=== PATIENT | male | born 1945 | race Caucasian/White ===

== ENCOUNTER 2021-01-04 15:24 | Inpatient (IN) | payer OTHER ==
[~2021-01-04] VITALS: Ht 175.3 cm; Wt 92.1 kg
[~2021-01-04 15:24] MED LIST: CIPROFLOXACIN500 M1 PO; NORCO 5-325 TA1 EACH PO; NOT SURE OF MEDS
[2021-01-04 15:31] VITALS: BP 116/80
[2021-01-04 15:59] LABS: ABSOLUTE NEUTROPHILS 6.5 thou/uL (1.4-8.2); EOSINOPHILS 1.6 % (0.0-3.0); HEMATOCRIT 37.5 % (42.0-52.0); HEMOGLOBIN 12.5 gm/dL (14.0-18.0); LYMPHOCYTES 11.1 % (24.0-44.0); MCH 32.4 pg (26.0-34.0); MCHC 33.4 g/dL (28.0-37.0); MCV 96.9 fL (80.0-100.0); MONOCYTES 8.8 % (1.0-8.0); PLATELET COUNT 184 thou/uL (150-400); POLYS 77.5 % (36.0-66.0); RBC 3.87 mil/uL (4.50-6.00); RDW 13.5 % (10.5-14.5); WBC 8.4 thou/uL (4.0-11.0)
[2021-01-04 16:19] LABS: CALCIUM 8.7 mg/dL (8.5-10.1); CREATININE 1.3 mg/dL (0.7-1.3); POTASSIUM 3.7 mmol/L (3.5-5.1)
[2021-01-04 16:32] LABS: ALBUMIN 3.4 g/dL (3.4-5.0); TOTAL BILIRUBIN 0.3 mg/dL (0.2-1.0); TOTAL PROTEIN 6.9 g/dL (6.4-8.2)
[2021-01-04 18:07] VITALS: BP 132/88
[2021-01-04 18:32] VITALS: BP 127/80
--- NOTE | 2021-01-04 19:24 | NUR ---
PT ORIENTED TO ROOM AND UNIT, BED LOW AND LOCKED, SIDE RAILS UPX3, CALL LIGHT IN REACH. TELE SHOWS AFIB RVR WITH CARDIZEM GTT IN PLACE. OBTAIN ORDER FROM YULIA PIZANO FOR CARDIAC CONSULT AND SPOKE WITH DR HERNANDEZ. VILMA REPORT GIVEN TO MARIEL GRIJALVA.
[2021-01-04 19:52] VITALS: BP 140/83
[2021-01-04 21:20] LABS: PHOSPHORUS 4.2 mg/dL (2.6-4.7)
[2021-01-04 22:03] LABS: FOLIC ACID 14.6 ng/mL (8.6-58.9)
[2021-01-04 23:47] VITALS: BP 122/89
[2021-01-05 04:05] VITALS: BP 134/74
[2021-01-05 04:07] LABS: ALBUMIN 3.4 g/dL (3.4-5.0); CALCIUM 8.6 mg/dL (8.5-10.1); CREATININE 1.3 mg/dL (0.7-1.3); MAGNESIUM 1.9 mg/dL (1.8-2.4); PHOSPHORUS 3.6 mg/dL (2.6-4.7); POTASSIUM 4.2 mmol/L (3.5-5.1); TOTAL BILIRUBIN 0.4 mg/dL (0.2-1.0); TOTAL PROTEIN 6.7 g/dL (6.4-8.2)
[2021-01-05 04:08] LABS: INR 1.1; PROTIME 11.9 Seconds (10.5-12.1)
[2021-01-05 06:28] LABS: URINE BILIRUBIN NEGATIVE (Negative); URINE BLOOD NEGATIVE (Negative); URINE CLARITY CLEAR; URINE COLOR YELLOW; URINE GLUCOSE-RANDOM* NEGATIVE (Negative); URINE KETONES NEGATIVE (Negative); URINE LEUKOCYTES-REFLEX NEGATIVE (Negative); URINE NITRITE-REFLEX NEGATIVE (Negative); URINE PROTEIN (DIPSTICK) NEGATIVE (Negative); URINE SPECIFIC GRAVITY <= 1.005 (1.005-1.035); URINE UROBILINOGEN 0.2 E.U./dl (0.2-1.0)
--- NOTE | 2021-01-05 06:28 | NUR ---
Pt admitted to 207 change of shift. Alert and oriented. Pt was on cardizem drip @ 20ml/hr. Drip titrated down 10ml/hr. HR in the 80's. Afib. Pt wheezy and SOB with exertion. Pt on stb assist to bathroom. Voids via urinal. Signed consent form for release of information from [facility]. Per charger operator helper, nuclear unit operator to fax today. Call light within reach. Nursing to continue to monitor.
[2021-01-05 07:18] LABS: ABSOLUTE NEUTROPHILS 6.4 thou/uL (1.4-8.2); BASOPHILS 0.4 % (0.0-2.0); EOSINOPHILS 0.3 % (0.0-3.0); HEMATOCRIT 39.7 % (42.0-52.0); HEMOGLOBIN 13.2 gm/dL (14.0-18.0); LYMPHOCYTES 5.8 % (24.0-44.0); MCH 32.2 pg (26.0-34.0); MCHC 33.2 g/dL (28.0-37.0); MCV 96.8 fL (80.0-100.0); PLATELET COUNT 186 thou/uL (150-400); POLYS 91.5 % (36.0-66.0); RBC 4.09 mil/uL (4.50-6.00); RDW 13.5 % (10.5-14.5)
--- NOTE | 2021-01-05 07:41 | NUR ---
Pt baldder scan this am showed 888ml. Pt voided 100ml. Straight cath had output of 700ml. Pt had lidocaine patch cut in 2. Half to right lower back and other half to right knee. Pt voiced patch helped alot.
[2021-01-05 07:50] VITALS: BP 135/61
[2021-01-05 11:50] VITALS: BP 134/78
[2021-01-05 15:45] VITALS: BP 143/77
--- NOTE | 2021-01-05 17:21 | NUR ---
ASSESSMENT CHARTED - MEDS PER CHAI - COURTNEY DIET AND FLUIDS, NO CO'S OF PAIN OR NAUSEA - LIDOCAINE PATCH PLACED TO R KNEE REQUESTED. PT AMBULATED WITH PHYS THERAPY - THEY STATED HE WAS NOT STEADY ON FEET. PT WITH SOB AND WHEEZING WITH ACTIVITY. SEEN BY CATDIOLOGY TODAY - ECHO ORDERED. CARDIZEM CONTINUES PT HR IN THE 80-90 EXCEPT WITH EXERTION THEN IT IS IN THE 120-130'S. RETURNS TO 80'S WITH REST. BLADDER SCANNED THIS AFTERNOON - 29CC NOTED IN BLADDER. NO CO'S AT THE PRESENT TIME.
[2021-01-05 23:30] VITALS: BP 141/79; BP 152/71
--- NOTE | 2021-01-06 04:34 | NUR ---
ASSUMED CARE OF PT AT 1900, PT WAS A/O X 4 AND PLEASENT. AT 0 ENTERED PT'S ROOM TO CORRECT IV, PT WAS LAYING DOWN IN BED REFUSING TO TAKE HIS MEDICATION, AND REFUSING TO ALLOW THIS NURSE TO ASSESS HIS IV IN HIS ARM. AFTER SEVERAL ATTEMPTS CHARGE NURSE NOTIFIED AND ASSISTED. PT WOULD NOT ANSWER QUESTIONS, ONLY STATING I WANT TO SLEEP. PT BECAME DISORIENTED TWICE THROUGHOUT THE NOC, AFTER AWAKING FROM A DEEP SLEEP. PT URINATED ON HIMSELF AND HAD TO BE REORIENTENT TO WHERE HE WAS. WILL CONTINUE TO WORK TOWARDS PT'S POC.
[2021-01-06 05:10] VITALS: BP 137/76
--- NOTE | 2021-01-06 07:38 | EKG ---
[address] [address] ELECTROCARDIOGRAM REPORT Name: DANIEL LOPEZ Room #: 207-P ADM IN M.R.#: [id number] Admission: 01/04/21 Attend Phys: Nighat Lehman MD Discharge: Date of : 45 Report #: [id number] [facility] ED Test Date: 2021-01-04 Test Time: 16:15:32 Pat Name: DANIEL LOPEZ Department: Room: 207 Gender: M Certified Coding Specialist: nmd : 1945 Requested By: Leandro Boggs Order Number: [id number] MD: Madi Thomas Measurements Intervals [place] Rate: 138 P: MS: QRS: 38 QRSD: 106 T: -26 QT: 318 QTc: 482 Interpretive Statements Atrial fibrillation Low voltage, extremity leads Anteroseptal infarct, old Compared to ECG 08/03/2007 06:39:03 Low QRS voltage now present Myocardial infarct finding now present Sinus bradycardia no longer present T-wave abnormality no longer present Possible ischemia no longer present Electronically Signed On 01-06-2021 7:37:47 CDT by Madi Thomas [email or web address] <ELECTRONICALLY SIGNED> By: Madi Thomas MD, FAC 01/06/21 0737 1615 1615 Madi Thomas MD, [facility] /EPI
--- NOTE | 2021-01-06 07:39 | EKG ---
[address] [address] ELECTROCARDIOGRAM REPORT Name: DANIEL LOPEZ Room #: 207-P ADM IN M.R.#: [id number] Admission: 01/04/21 Attend Phys: Nighat Lehman MD Discharge: Date of : 45 Report #: [id number] [facility] Test Date: 2021-01-05 Test Time: 00:24:16 Pat Name: DANIEL LOPEZ Department: Room: 207 Gender: M Cottrell Operator: KHALIDA : 1945 Requested By: Nighat Lehman Order Number: [id number] MD: Madi Thomas Measurements Intervals [place] Rate: 85 P: SC: QRS: 47 QRSD: 109 T: 45 QT: 404 QTc: 481 Interpretive Statements Atrial fibrillation Low voltage, extremity leads Probable anteroseptal infarct, old Compared to ECG 01/04/2021 16:15:32 No significant changes Electronically Signed On 01-06-2021 7:38:52 CDT by Madi Thomas [email or web address] <ELECTRONICALLY SIGNED> By: Madi Thomas MD, [facility] 01/06/21 0738 0024 0024 Madi Thomas MD, FACC /EPI
[2021-01-06 08:00] VITALS: BP 124/72
--- NOTE | 2021-01-06 10:57 | 2DMMODE ---
[facility] [place] [address] 2 D/M-MODE ECHOCARDIOGRAM Name: DANIEL LOPEZ Room #: 207-P ADM IN .R.#: [id number] Admission: 01/04/21 Attend Phys: Nighat Lehman MD Discharge: Date of : 45 Report #: [id number] THIS REPORT FOR: cc: FAM - No family physician/PCP FAM - No family physician/PCP Vance Covarrubias MD ~ APPROVED REPORT Study performed: 01/06/2021 08:19:46 EXAM: Comprehensive 2D, Doppler, and color-flow Echocardiogram Patient Location: In-Patient Room #: 207 Status: routine BSA: 0.82 HR: 76 bpm BP: 137/76 mmHg Rhythm: Atrial Fibrillation Other Information Study Quality: Fair Indications COPD Atrial Fibrillation Dyspnea 2D Dimensions IVSd: 14.16 (7-11mm) LVOT Diam: 23.04 (18-24mm) LVDd: 40.79 mm PWd: 12.64 (7-11mm) Ascending Ao: 47.43 (22-36mm) LVDs: 31.93 (25-40mm) Left Atrium: 45.70 (27-40mm) Aortic Root: 37.27 mm LV Single Plane 4CH: 59.81 % LV Single Plane 2CH: 64.39 % Volumes Left Atrial Volume (Systole) Single Plane 4CH: 57.28 mL Single Plane 2CH: 46.84 mL Aortic Valve AoV Peak Moustapha.: 0.98 m/s AO Peak Gr.: 3.84 mmHg LVOT Max P.25 mmHg [facility] [address] [place] [address] 2 D/M-MODE ECHOCARDIOGRAM Name: JESSICADANIEL Gerardo Room #: 207-P [facility]#: [id number] Admission: 01/04/21 Attend Phys: Nighat Lehman, Discharge: Date of : 45 Report #: [id number] LVOT Max V: 0.90 m/s EDITH Vmax: 3.83 cm2 Pulmonary Valve PV Peak Moustapha.: 0.90 m/s PV Peak Gr.: 3.27 mmHg Tricuspid Valve TR Peak Moustapha.: 2.23 m/s RAP Estimate: 7.00 mmHg TR Peak Gr.: 19.97 mmHg RVSP: 27.00 mmHg Left Ventricle The left ventricle is normal size. There is normal LV segmental wall motion. There is normal left ventricular wall thickness. Left ventricular systolic function is normal. The left ventricular ejection fraction is within the normal range. LVEF is 60%. This study is not technically sufficient to allow evaluation of the LV diastolic function due to atrial fibrillation. Right Ventricle The right ventricle is normal size. The right ventricular systolic function is normal. Atria The left atrium size is normal. The right atrium size is normal. Aortic Valve Aortic valve is trileaflet. Mild aortic regurgitation. There is no aortic valvular stenosis. Mitral Valve The mitral valve is normal in structure. Mild mitral regurgitation. No evidence of mitral valve stenosis. Tricuspid Valve The tricuspid valve is normal in structure. Mild tricuspid regurgitation. Pulmonic Valve The pulmonary valve is normal in structure. There is no pulmonic valvular regurgitation. Great Vessels The aortic root is normal in size. Ascending aorta is dilated. 4.7 cm IVC is normal in size and collapses >50% with inspiration. [facility] [address] [place] [address] 2 D/M-MODE ECHOCARDIOGRAM Name: DANIEL LOPEZ Room #: 207-P [facility] IN ..#: [id number] Admission: 01/04/21 Attend Phys: Nighat Lehman, Discharge: Date of : 45 Report #: [id number] Pericardium There is no pericardial effusion. <Conclusion> The left ventricle is normal size. There is normal LV segmental wall motion. LVEF is 60%. The left atrium size is normal. Aortic valve is trileaflet. Mild aortic regurgitation. The mitral valve is normal in structure. Mild mitral regurgitation. The tricuspid valve is normal in structure. Mild tricuspid regurgitation. The pulmonary valve is normal in structure. Ascending aorta is dilated. 4.7 cm There is no pericardial effusion. <ELECTRONICALLY SIGNED> By: Vance Covarrubias MD 01/06/21 1057 1057 1057 Vance Covarrubias MD /INF
[2021-01-06 11:55] VITALS: BP 135/85
--- NOTE | 2021-01-06 16:42 | NUR ---
met with patient who resides at home alone in independent home. All needs on one level. No hx of DME. Patient cont to drive short distances. Patient has a lady friend he calls once a day. he has supportive neighbor. Patient reports "someone from welfare visited him about his cats," came in his hospital room. Patient reports he needed to clarify that he has 4 cats that live with him. The other cats are neighborhood cats. He has friends who donate cat food for him to feed neighborhood cats. Patient [place]. He is agreeable to HH no preference for an agency. Faxed referral to [facility] for review. Spoke with [facility] who with eval believes patient can dc home with HH care.
[2021-01-06 17:00] VITALS: BP 139/85
--- NOTE | 2021-01-06 17:44 | NUR ---
[facility] can accept for home health care.
[2021-01-06 19:40] VITALS: BP 130/81
--- NOTE | 2021-01-06 20:33 | NUR ---
pT REMAINED SAFE AND COMFORTABLE DURING THE SHIFT, WS CONFUSED EARLY THIS MORNING BUT WAS REORIENTED, OFF CARDIZEN DRIP AND ON INCREASED OF COREG SR ON TELE AT THE END OF THE DAY. DISCHARGE TO TO REHAB IS PROSPECTIVE.
[2021-01-07] VITALS (8 sets, daily range): BP systolic 111–146; BP diastolic 53–95
--- NOTE | 2021-01-07 08:36 | NUR ---
ASSUMED PT CARE AT 1900, PT IS AWAKE, ALERT AND ORIENTED, REMAINS ON RA, O2SATS STABLE, VOIDING PER URINAL, SA ON TELE, HR ELEVATED WITH ACTIVITY, PAIN TO THE LEFT KNEE, OFFERED TYL BUT REFUSED, NO EVENTS OVERNIGHTM PASSED ON REPORT TO DAY NURSE
[2021-01-07 12:10] LABS: CHOLESTEROL 172 mg/dL (<200); HDL CHOLESTEROL 51 mg/dL (>40); LDL CHOLESTEROL 92 mg/dL (<100); TC:HDL 3.4 Ratio (Not establshd); TRIGLYCERIDE 149 mg/dL (<150); VLDL 30 mg/dL (<40)
--- NOTE | 2021-01-07 17:39 | NUR ---
ASSESSMENT CHARTED- MEDS PER JUN - NO CO'S OF PAIN OR [place] - COURTNEY DIET AND FLUIDS. PT SOB WITH MIN EXERTION - PT HR ELEVATED THIS AM - GIVEN TOPROL 5 MGS IVP AND PLACED BACK ON CARDIZEM DRIP ORDERED. STARTED AT 10 MG AND THEN REAISED TO 15 MG IWTH HR RESPONSE TO 70-80. CARDIZEM THEN REDUCED BACK TO 10MGS AND PT HR STABLE BP STABLE WHILE ON CARDIZEM DRIP. PT GIVEN VALIUM ORDERED FOR ANXIOUSNESS WITH GOOD EFFECT. PT STANDS AT BEDSIDE TO VOID - STATES HE FEELS HE EMPTIED HI BLADDER WHEN VOIDING. PT WITH NO CO'S AT THE PRESENT TIME. APPEARS TO BE RESTING COMFORTABLY.
[2021-01-08] VITALS (12 sets, daily range): BP systolic 125–155; BP diastolic 73–91
--- NOTE | 2021-01-08 05:45 | NUR ---
RECEIVED THE PATIENT ALERT AND ORIENTED.ON ROOM AIR BREATHING SPONTANEOUSLY.NOT IN PAIN OR DISTRESS.ON CARDIZEM DRIP AT 10MG/HR.VITAL SIGNS MOINTORED AND RECORDED.ON AFIB ON THE MONITOR.ALL NEEDS ATTENDED.FOR CONTINOUS MONITORING.
--- NOTE | 2021-01-08 15:26 | NUR ---
PT RESTING COMFORTABLY. CARDIZEM GTT TITRATED OFF AT APPROX 0945. PTS AF NOW CONTROLLED ON PO MEDS. CIWA-0. CARDIOLOGY IS OK FOR PT TO DC TODAY IF CARDIZEM GTT IS OFF. PT HAS BEEN THOUROUGHLY UPDATED AND EDUCATED ON PT CONDITION AND POC. PT PROGRESSING TOWARDS POC. PT AFEBRILE, ADEQUATE UOP, NO BM, APPROPRIATE APPETITE.
--- NOTE | 2021-01-08 15:30 | NUR ---
Spoke with Nyla at [facility] and alerted possible dc in am.
--- NOTE | 2021-01-09 04:55 | NUR ---
PT IS ALERT AND ORIENTED X4. LUNGS ARE DIMINISHED. A FIB ON THE INDUCTION HEAT TREATER. ABDOMEN IS ROUND BOWEL SOUNDS ACITVE. DENIES ANY PAIN ISSUES . NO COMPLAINTS NOTED SLEPT THROUGH THE NIGHT CALL LIGHT WITHIN REACH IF NEEDS NURSING ASSTANCE PER STAFF.
[2021-01-09 07:35] VITALS: BP 144/98
[2021-01-09] MEDS ORDERED: CEFDINIR300 MG PO (13:20)
[2021-01-09] MEDS ORDERED: PREDNISONE 20 M20 MG PO (13:20)
[2021-01-09] MEDS ORDERED: IPRAT-ALBUT 0.5-3 ML INH (13:20)
[2021-01-09] MEDS ORDERED: CARVEDILOL12.5 MG PO (13:20)
[2021-01-09] MEDS ORDERED: DILTIAZEM ER360 M1 PO (13:20)
[2021-01-09] MEDS ORDERED: ELIQUIS5 MG PO (13:20)
[2021-01-09] MEDS ORDERED: PEPCID20 MG PO (13:20)
[2021-01-09 14:06] VITALS: BP 155/84
[2021-01-09 14:10] VITALS: BP 155/84
== END 2021-01-09 15:06 | disposition home health service (06) | DRG 291 ==
LOC: ER 15:24 → 2N 18:01 → EROBS 18:01 → 2N 18:45
PROVIDERS: Nurse Practitioner; ADMIT Internal Medicine; ATTEND Internal Medicine
DX: I11.0 Hypertensive heart disease with heart failure (principal); J18.9 Pneumonia, unspecified organism; J96.01 Acute respiratory failure with hypoxia; I50.31 Acute diastolic (congestive) heart failure; R65.11 Systemic inflammatory response syndrome (SIRS) of non-infectious origin with acute organ dysfunction; J44.1 Chronic obstructive pulmonary disease with (acute) exacerbation; I48.21 Permanent atrial fibrillation; E87.1 Hypo-osmolality and hyponatremia; F10.139 Alcohol abuse with withdrawal, unspecified; J44.0 Chronic obstructive pulmonary disease with (acute) lower respiratory infection; Z20.822 Contact with and (suspected) exposure to COVID-19; E78.00 Pure hypercholesterolemia, unspecified; G89.29 Other chronic pain; M54.9 Dorsalgia, unspecified; I10 Essential (primary) hypertension; R53.81 Other malaise; E66.9 Obesity, unspecified; Z68.35 Body mass index [BMI] 35.0-35.9, adult; Z79.01 Long term (current) use of anticoagulants; Z88.8 Allergy status to other drugs, medicaments and biological substances; Z87.891 Personal history of nicotine dependence; Z85.46 Personal history of malignant neoplasm of prostate; Z85.51 Personal history of malignant neoplasm of bladder; Z80.42 Family history of malignant neoplasm of prostate; Z79.899 Other long term (current) drug therapy
CPT/HCPCS: 10081